=== PATIENT | female | born 1990 | race Caucasian/White ===

== ENCOUNTER 2016-04-22 17:16 | Inpatient (IN) | payer SELFPAY ==
[~2016-04-22] VITALS: Ht 175.3 cm; Wt 133.1 kg
[~2016-04-22 17:16] MED LIST: ERYT.5%O LEFT EYE
[2016-04-22 17:18] VITALS: BP 133/94; PULSE 70; RESP 20; TEMP 97.9; O2SAT 100
--- NOTE | 2016-04-22 18:01 | PD ---
HPI Chief Complaint: Psychiatric Symptoms Time Seen by Provider: 18:01 Travel History International Travel<30 days: No Contact w/Intl Traveler<30days: No Traveled to known affect area: No History of Present Illness HPI 25-year-old female presents to the emergency department admitting that she is suicidal has a plan to take a large amount of pills to kill herself. Patient states no previous history of depression requiring hospitalization in the past. Patient does state however her mother is bipolar as well as her sister. 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 States her cat also recently. She is also arguing with her current boyfriend. Patient normally takes no medications and has no chronic medical problems other than recent tendinitis of the right thumb. She has no known drug allergies. She denies drug or alcohol abuse. PFSH Past Medical History ?: Not LMP: 04/22/16 Past Surgical History Other Surgery: Yes (SWEATGLAND REMOVAL ) Social History Alcohol Use: Yes (OCC) Tobacco Use: Yes (HUKA ) Substance Use: No Allergies-Medications (Allergen,Severity, Reaction): Coded Allergies: No Known Allergies (Verified , 01/01/16) Reported Meds & Prescriptions Reported Meds & Active Scripts Active Ilotycin (Erythromycin) 3.5 Gm Oint 1 Dose LEFT EYE QID 7 Days Review of Systems Except as stated in HPI: all other systems reviewed are Neg General / Constitutional: No: Fever Eyes: No: Visual changes HENT: No: Headaches Cardiovascular: No: Chest Pain or Discomfort Respiratory: No: Shortness of Breath Gastrointestinal: No: Abdominal Pain Genitourinary: No: Dysuria Musculoskeletal: Positive: Arthralgias, No: Pain Skin: No Rash Neurologic: No: Weakness Psychiatric: No: Depression Endocrine: No: Polydipsia Hematologic/Lymphatic: No: Easy Bruising Physical Exam Narrative GENERAL: Patient appears mildly anxious and upset but no acute distress. SKIN: Warm and dry. Normal color. Normal turgor. HEAD: Atraumatic. Normocephalic. EYES: Pupils equal and round. No scleral icterus. No injection or drainage. ENT: No nasal bleeding or discharge. Mucous membranes pink and moist. Pharynx is normal. NECK: Trachea midline. Supple and nontender. No palpable goiter. CARDIOVASCULAR: Regular rate and rhythm. RESPIRATORY: No accessory muscle use. Clear to auscultation. Breath sounds equal bilaterally. GASTROINTESTINAL: Abdomen soft, non-tender, nondistended. Hepatic and splenic margins not palpable. MUSCULOSKELETAL: Extremities without clubbing, cyanosis, or edema. No obvious deformities. NEUROLOGICAL: Awake and alert. No obvious cranial nerve deficits. Motor grossly within normal limits. Five out of 5 muscle strength in the arms and legs. Normal speech. PSYCHIATRIC: Appropriate mood and affect; insight and judgment normal. Data Data Last Documented VS Vital Signs Date Time Temp Pulse Resp B/P Pulse Ox O2 Delivery O2 Flow Rate FiO2 04/22/16 17:18 97.9 70 20 133/94 100 Room Air Orders Complete Blood Count With Diff (04/22/16 18:09) Comprehensive Metabolic Panel (04/22/16 18:09) Drug Screen, Random Urine (04/22/16 18:09) Ed Urine Pregnancytest Poc (04/22/16 18:09) Psych Screen (04/22/16 18:09) Diet Regular Basic (04/22/16 Dinner) MDM Medical Decision Making Medical Screen Exam Complete: Yes Emergency Medical Condition: Yes Differential Diagnosis Suicidal ideation with plan. Life stressors. Depression. Narrative Course Patient is medically stable at time of exam. Basic labs ordered for psychiatric protocol. Discussed with the patient that if I felt she would leave AGAINST MEDICAL ADVICE I would [place] act her. Currently she agrees to be here voluntarily.\ Patient is medically stable for psychiatric evaluation. Diagnosis Primary Impression: Suicidal ideations Additional Impression: Medical clearance for psychiatric admission Condition: Stable [place] Apr 22, 2016 18:01 [place] Apr 22, 2016 18:01
[2016-04-22 19:15] LABS: AUTOMATED NEUTROPHIL # 4.8 TH/MM3 (1.8-7.7); BASOPHIL # 0.1 TH/MM3 (0-0.2); BASOPHIL % 0.8 % (0.0-2.0); EOSINOPHIL # 0.2 TH/MM3 (0-0.4); EOSINOPHIL % 2.4 % (0.0-4.0); HEMATOCRIT 39.8 % (35.0-46.0); HEMO FLAGS DIFF FINAL; LYMPH % 27.6 % (9.0-44.0); LYMPHOCYTE # 2.1 TH/MM3 (1.0-4.8); MEAN CELL VOLUME 86.8 FL (80.0-100.0); MEAN CORPUSCULAR HEMOGLOBIN 29.6 PG (27.0-34.0); MEAN CORPUSCULAR HGB CONC 34.1 % (32.0-36.0); MONO % 5.7 % (0.0-8.0); NEUT % 63.5 % (16.0-70.0); PLATELET COUNT 178 TH/MM3 (150-450); RED BLOOD COUNT 4.59 MIL/MM3 (4.00-5.30); RED CELL DISTRIBUTION WIDTH 13.1 % (11.6-17.2); WHITE BLOOD COUNT 7.6 TH/MM3 (4.0-11.0)
[2016-04-22 19:22] LABS: AMPHETAMINE, URINE NEG (NEG); BARBITURATES, URINE NEG (NEG); COCAINE, URINE NEG (NEG)
[2016-04-22 19:39] LABS: ANION GAP 8 MEQ/L (5-15); AST (GOT) 11 U/L (15-37); BICARBONATE 29.4 MEQ/L (21.0-32.0); BLOOD UREA NITROGEN 12 MG/DL (7-18); CHLORIDE 104 MEQ/L (98-107); GLOMERULAR FILTRATION RATE 58 ML/MIN (>89); POTASSIUM 3.9 MEQ/L (3.5-5.1); SODIUM (NA) 141 MEQ/L (136-145)
[2016-04-22 19:42] LABS: ALKALINE PHOSPHATASE 78 U/L (45-117); ALT (GPT) 21 U/L (10-53); TOTAL BILIRUBIN ADULT 0.3 MG/DL (0.2-1.0)
[2016-04-22] MEDS ORDERED: ALUMINUM/MAGNESIUM/SIMETH 30 ML CUP PO PRN (21:15)
[2016-04-22] MEDS ORDERED: ACETAMINOPHEN 325 MG TAB PO PRN (21:15)
[2016-04-22] MEDS ORDERED: MAGNESIUM HYDROXIDE SUSP 30 ML CUP PO PRN (21:15)
[2016-04-22] MEDS ORDERED: LORazepam 0.5 MG TAB PO PRN (22:00)
[2016-04-22] MEDS ORDERED: LORazepam 2 MG/ML VIAL IM PRN (22:00)
[2016-04-22 23:55] VITALS: BP 128/86; PULSE 78; RESP 16; TEMP 98.2; O2SAT 100
[2016-04-23 05:29] VITALS: BP 117/64; PULSE 63; RESP 18; TEMP 98.1; O2SAT 99
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
[2016-04-23] MEDS ORDERED: NICOTINE 21 MG/24 HR PATCH T-DERMAL SCH (09:00)
[2016-04-23] MEDS ORDERED: CITALOPRAM HYDROBROMIDE 20 MG TAB PO SCH (09:00)
[2016-04-23] MEDS ORDERED: NICOTINE 7 MG/24 HR PATCH T-DERMAL SCH (09:00)
[2016-04-23] MEDS ORDERED: REMOVE OLD NICOTINE PATCH T-DERMAL SCH (21:00)
[2016-04-23] MEDS ORDERED: DIVALPROEX DR 500 MG TABEC PO SCH (21:00)
== END 2016-04-23 16:00 | disposition left against medical advice (07) | DRG 881 ==
LOC: NEPB 17:16 → NEDA 21:03 → H260 23:58 → H270 04-23 11:05
PROVIDERS: ADMIT Psychiatry & Neurology Psychiatry; ATTEND Psychiatry & Neurology Psychiatry
DX: F43.21 Adjustment disorder with depressed mood (principal); R45.851 Suicidal ideations; M77.9 Enthesopathy, unspecified; F17.290 Nicotine dependence, other tobacco product, uncomplicated
CPT/HCPCS: 80053; 80307; 84703; 85025; 99284

== ENCOUNTER 2017-03-30 07:15 | Emergency (ER) | payer OTHER ==
[~2017-03-30] VITALS: Ht 175.3 cm; Wt 130.0 kg
[2017-03-30 07:59] LABS: AUTOMATED NEUTROPHIL # 3.5 TH/MM3 (1.8-7.7); BASOPHIL % 0.8 % (0.0-2.0); EOSINOPHIL # 0.1 TH/MM3 (0-0.4); HEMATOCRIT 39.5 % (35.0-46.0); HEMOGLOBIN 13.8 GM/DL (11.6-15.3); LYMPH % 31.9 % (9.0-44.0); LYMPHOCYTE # 1.9 TH/MM3 (1.0-4.8); MEAN CELL VOLUME 88.1 FL (80.0-100.0); MEAN CORPUSCULAR HEMOGLOBIN 30.7 PG (27.0-34.0); MEAN CORPUSCULAR HGB CONC 34.9 % (32.0-36.0); MEAN PLATELET VOLUME 9.4 FL (7.0-11.0); MONO % 5.7 % (0.0-8.0); MONOCYTE # 0.3 TH/MM3 (0-0.9); NEUT % 59.6 % (16.0-70.0); PLATELET COUNT 161 TH/MM3 (150-450); RED BLOOD COUNT 4.49 MIL/MM3 (4.00-5.30); WHITE BLOOD COUNT 5.8 TH/MM3 (4.0-11.0)
[2017-03-30 08:05] LABS: BACTERIA, URINE OCC /hpf; BILIRUBIN, URINE NEG (NEG); BLOOD, URINE NEG (NEG); GLUCOSE,URINE NEG (NEG); KETONE, URINE NEG (NEG); MUCUS URINE MANY /lpf (OCC); NITRITE,URINE NEG (NEG); SQUAMOUS EPITHELIAL CELL URINE 5 /hpf (0-5); URINE COLOR YELLOW (YELLW/STRAW); URINE LEUKOCYTE ESTERASE NEG (NEG)
[2017-03-30 08:15] LABS: ALBUMIN 4.1 GM/DL (3.4-5.0); AST (GOT) 20 U/L (15-37); BICARBONATE 25.9 MEQ/L (21.0-32.0); BLOOD UREA NITROGEN 15 MG/DL (7-18); CHLORIDE 106 MEQ/L (98-107); CREATININE 1.11 MG/DL (0.50-1.00); GLOMERULAR FILTRATION RATE 60 ML/MIN (>89); GLUCOSE,RANDOM 107 MG/DL (74-106); SODIUM (NA) 140 MEQ/L (136-145)
[2017-03-30 08:17] LABS: ALT (GPT) 22 U/L (10-53)
[2017-03-30 08:19] LABS: ALKALINE PHOSPHATASE 75 U/L (45-117); TOTAL BILIRUBIN ADULT 0.6 MG/DL (0.2-1.0); TOTAL PROTEIN 7.7 GM/DL (6.4-8.2)
[2017-03-30 08:27] VITALS: BP 130/82; PULSE 70; RESP 18; TEMP 96.4; O2SAT 99
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
--- NOTE | 2017-03-30 16:12 | PD ---
History of Present Illness Chief Complaint: Psychiatric Symptoms Time Seen by Provider: 15:15 Travel History International Travel<30 Days: No Contact w/Intl Traveler<30days: No Known affected area: No Legal Status Legal Status: Peralta Act P[place] Act Signed By: Lion Gonzales Peralta Act Comment: Ofc. Alirio Bruce #[id number] History of Present Illness: History of Present Illness HPI This patient is a 26-year-old female with no reported psychiatric history who presents under Peralta act initiated by the Police Department. The Peralta act report alleges that the police were called by the patient's mother who reported that they were verbally arguing and while the police service technician was there, the patient told the police service technician officer that she was having suicidal thoughts. It is also reported that she made this statement I'm going to kill myself "because she would miss work and not make any money if she were to come to the hospital. The patient was monitored in secure environment and she presented no behavioral concerns and no suicidality Electronic medical record is reviewed. The patient was admitted for an overnight stay at her psychiatric inpatient unit in April 2016. There is also documentation that she was treated for adjustment disorder as a teenager. The patient is seen. She is alert, oriented and cooperative. She has maintained behavioral control while in [facility]. She presents no evidence of any unstable mental illness. There is no indication that she has any hallucinations and I can't elicit no delusions or paranoia. No so or hypomania. She denies feeling depressed. She is actually angry at her mom for having made the call to the police. She tells me that they were arguing and she became upset at the mom for telling her some things about her boyfriend. She states "I was done at the time I made the statement". She is now denying any suicidal or homicidal ideation, intent or plan. She is wanting to be discharged as she does not want to miss work. PFSH Past Medical History Arthritis: No Asthma: No Autoimmune Disease: No Anxiety: Yes Depression: Yes Cancer: No Cardiovascular Problems: No Chemotherapy: No Cerebrovascular Accident: No Diabetes: No Diminished Hearing: No Endocrine: No GERD: No Genitourinary: Yes (UTI FREQUENTLY) Headaches: No Hiatal Hernia: No Immune Disorder: No Kidney Stones: No Musculoskeletal: Yes (TENDINITIS) Neurologic: Yes Psychiatric: No Reproductive: No Respiratory: No Migraines: Yes (DAILY CHRONIC MIGRAINES) Radiation Therapy: No Seizures: No Sickle Cell Disease: No Thyroid Disease: No Ulcer: No Tetanus Vaccination: Unknown Influenza Vaccination: No ?: Unknown LMP: 03/27/17 Miscarriage: 1 Past Surgical History Abdominal Surgery: No Cardiac Surgery: No Ear Surgery: No Endocrine Surgery: No Eye Surgery: No Genitourinary Surgery: No Gynecologic Surgery: No Oral Surgery: No Pacemaker: No Thoracic Surgery: No Other Surgery: Yes (removal of boils to R underarm x 3) Psychiatric History Psychiatric History Hx Psychiatric Treatment: Denies all psych history but chart shows a diagnosis of depression in last year with an overnight stay at our inpatient psychiatric unit. The chart also reflects previous treatment at [facility] for adjustment disorder in 2005. History of Inpatient Treatment: Yes Guns or firearms in home: No Social History Single female who was born in [place]. She currently lives with her mother. She completed high school. She has 2 jobs. Hx Alcohol Use: Yes (occasional, last Nov.) Hx Tobacco Use: No Hx Substance Use: No Substance Use Type: Alcohol (states only on occasion) Hx of Substance Use Treatment: No Family Psychiatric History Negative Allergies-Medications (Allergen,Severity, Reaction): Uncoded Allergies: NICKEL (Allergy, Intermediate, 04/22/16) SKIN ALLERGY TO NICKEL PER PATIENT Reported Meds & Prescriptions Reported Meds & Active Scripts Active No Active Prescriptions or Reported Medications Review of Systems Except as stated in HPI: all other systems reviewed are Neg Mental Status Examination Appearance: Appropriate (dressed in hospital gown. Maintaining hygiene.) Consciousness: Alert Orientation: x4 Motor Activity: Normal gait Speech: Unremarkable Language: Adequate Fund of Knowledge: Adequate Attention and Concentration: Adequate Memory: Unremarkable Mood: Angry (at being here in the hospital) Affect: Appropriate Thought Process & Associations: Intact, Logical, Goal directed, Loose associations Thought Content: Appropriate Hallucination Type: None Delusion Type: None Suicidal Ideation: No Suicidal Plan: No Suicidal Intention: No Homicidal Ideation: No Homicidal Plan: No Homicidal Intention: No Insight: Fair Judgment: Impulsive MDM Medical Decision Making Medical Record Reviewed: Yes Assessment/Plan 26-year-old female with a reported previous psychiatric history but record history of adjustment disorder who presents under a Peralta act initiated by law enforcement. She made a statement that she wanted to kill herself in context of having an argument with her mother over her relationship with a man. The patient was monitored in secure environment and presented no behavioral concerns and no suicidality. She denies suicidal or homicidal ideation, intent or plan. She states that she made the statement in context of the argument and that she was very angry at the time. The patient presents no cognitive impairment. She wants to be discharged as she does not want to lose her job. She intends on going back to stay with her mom. At this time I have no criteria to keep her here against her will and she presents no criteria for inpatient psychiatric treatment. The Peralta act is lifted. Psychiatrically clear for discharge from the ED. Orders Orders Complete Blood Count With Diff (03/30/17 07:43) Comprehensive Metabolic Panel (03/30/17 07:43) Urinalysis - C+S If Indicated (03/30/17 07:43) Ed Urine Pregnancytest Poc (03/30/17 07:43) Psych Screen (03/30/17 07:43) Drug Screen, Random Urine (03/30/17 07:43) Alcohol (Ethanol) (03/30/17 07:43) Diet Regular Basic (03/30/17 Breakfast) Diet Regular Basic (03/30/17 Lunch) Diet Regular Basic (03/30/17 Dinner) Results Vital Signs Date Time Temp Pulse Resp B/P (MAP) Pulse Ox O2 Delivery O2 Flow Rate FiO2 03/30/17 08:27 96.4 70 18 130/82 (98) 99 Room Air Laboratory Tests Test 03/30/17 07:40 White Blood Count 5.8 Red Blood Count 4.49 Hemoglobin 13.8 Hematocrit 39.5 Mean Corpuscular Volume 88.1 Mean Corpuscular Hemoglobin 30.7 Mean Corpuscular Hemoglobin Concent 34.9 Red Cell Distribution Width 13.0 Platelet Count 161 Mean Platelet Volume 9.4 Neutrophils (%) (Auto) 59.6 Lymphocytes (%) (Auto) 31.9 Monocytes (%) (Auto) 5.7 Eosinophils (%) (Auto) 2.0 Basophils (%) (Auto) 0.8 Neutrophils # (Auto) 3.5 Lymphocytes # (Auto) 1.9 Monocytes # (Auto) 0.3 Eosinophils # (Auto) 0.1 Basophils # (Auto) 0.0 CBC Comment AUTO DIFF Differential Comment AUTO DIFF CONFIRMED Urine Color YELLOW Urine Turbidity HAZY Urine pH 6.0 Urine Specific [place] 1.029 Urine Protein TRACE Urine Glucose (UA) NEG Urine Ketones NEG Urine Occult Blood NEG Urine Nitrite NEG Urine Bilirubin NEG Urine Urobilinogen LESS THAN 2.0 Urine Leukocyte Esterase NEG Urine RBC LESS THAN 1 Urine WBC 2 Urine Squamous Epithelial Cells 5 Urine Bacteria OCC Urine Mucus MANY Microscopic Urinalysis Comment CULT NOT INDICATED Blood Urea Nitrogen 15 Creatinine 1.11 Random Glucose 107 Total Protein 7.7 Albumin 4.1 Calcium Level 9.0 Alkaline Phosphatase 75 Aspartate Amino Transf (AST/SGOT) 20 Alanine Aminotransferase (ALT/SGPT) 22 Total Bilirubin 0.6 Sodium Level 140 Potassium Level 3.9 Chloride Level 106 Carbon Dioxide Level 25.9 Anion Gap 8 Estimat Glomerular Filtration Rate 60 Urine Opiates Screen NEG Urine Barbiturates Screen NEG Urine Amphetamines Screen NEG Urine Benzodiazepines Screen NEG Urine Cocaine Screen NEG Urine Cannabinoids Screen NEG Ethyl Alcohol Level LESS THAN 3 Diagnosis Primary Impression: adjustment disorder Additional Impression: Medical clearance for psychiatric admission Psychiatrically Cleared: Yes Med/ Other Pt Specific Info: No Change to Meds Prescriptions No Active Prescriptions or Reported Meds Disposition: 01 DISCHARGE HOME Condition: Stable Problem Qualifiers Mikayla Navarrete Mar 30, 2017 16:12
== END 2017-03-30 18:05 | disposition home or self-care (01) ==
LOC: NEPJ 07:15
DX: Z04.6 Encounter for general psychiatric examination, requested by authority (principal); F43.22 Adjustment disorder with anxiety; F32.9 Major depressive disorder, single episode, unspecified; R45.851 Suicidal ideations; Z72.0 Tobacco use
CPT/HCPCS: 80053; 80307; 81001; 84703; 85025; 99283